=== PATIENT | male | born 1965 | race Caucasian/White ===

== ENCOUNTER 2016-11-15 08:53 | Emergency (ER) | payer OTHER ==
[~2016-11-15] VITALS: Ht 188 cm; Wt 100.0 kg
[2016-11-15 16:48] VITALS: BP 131/66
== END 2016-11-15 16:59 | disposition home or self-care (01) ==
LOC: ED 14:00
DX: F10.229 Alcohol dependence with intoxication, unspecified (principal)
CPT/HCPCS: 99283